=== PATIENT | male | born 1945 | race Caucasian/White ===

== ENCOUNTER → 2016-11-26 | Outpatient (CLI) | payer OTHER | LOC: BMCIMAGING 15:01 | PROVIDERS: ATTEND Psychiatry & Neurology Neurology | DX: I65.21 Occlusion and stenosis of right carotid artery (principal) ==

== ENCOUNTER 2016-12-16 07:54 | Emergency (ER) | payer OTHER ==
[2016-12-16 11:11] LABS: ANION GAP 8 mEq/L (8-16); C-REACTIVE PROTEIN < 5.0 mg/L (<10.0); CALCIUM 9.1 mg/dL (8.5-10.4); CARBON DIOXIDE 27 mEq/l (22-31); CHLORIDE 105 mEq/L (97-110); CREATININE 0.8 mg/dL (0.7-1.3); GLOMERULAR FILTRATION RATE > 60; GLUCOSE 103 mg/dL (70-100); POTASSIUM 4.5 mEq/L (3.5-5.2); SODIUM 140 mEq/L (134-144)
--- NOTE | 2016-12-16 11:27 | EDPHY ---
H & P Time Seen by Provider: 12/16/16 08:08 HPI/ROS: CHIEF COMPLAINT: Loss in vision in the right eye HISTORY OF PRESENT ILLNESS: Patient had similar symptoms 2 years ago which lasted for about a day. This past weekend he was in [facility] at his daughter's and noticed at the breakfast table on Friday that he could not see out of his right eye at all. He went to urgent care and was discharged. His symptoms went away after about an hour. Today he spoke with his neurologist who asked him to come to the emergency department for evaluation. Currently is vision has completely gone back to normal. He did not have any recurrence after Friday. Symptoms were not associated with double vision or headache. REVIEW OF SYSTEMS: Eye: HPI ENT: no sore throat Cardiac: no chest pain or syncope Pulmonary: no cough or SOB Abdomen: no vomiting, diarrhea, abdominal pain Musculoskeletal: no back pain or neck pain Skin: no rash Neuro: no headache Constitutional: no fever : no urinary symptoms A comprehensive 10 point review of systems is otherwise negative aside from elements mentioned in the history of present illness. PAST MEDICAL HISTORY: Includes aortic stenosis on Eliquis. Chronic memory issues. L4-5 fusion. Social history: nonsmoker General Appearance: Alert and conversant, cooperative. Eyes: No scleral icterus. Pupils 3 mm left and 4 mm right reactive and extraocular motion intact, no proptosis. No hyphema. ENT, Mouth: Normal mucous membranes. Respiratory: Normal respiratory effort, breath sounds equal, lungs are clear to auscultation. Cardiovascular: Regular rate and rhythm. 3/6 systolic murmur radiating to the carotids. Gastrointestinal: Abdomen is soft and non tender. Neurological: Alert and oriented x3. Normally conversant. Face symmetric, normal movement and sensation in all extremities. Ambulatory without ataxia. Visual everett intact to confrontation. Visual acuity noted 20/25 in each eye. Skin: Warm and dry, no rashes. Musculoskeletal: No peripheral edema and no joint swelling. Psychiatric: Not agitated. Emergency Department course/MDM: Discussed in detail with the patient's neurologist Dr. Ballard at 1023 and again at 11:30 a.m. Also discussed with Dr. Robert at 9:53 a.m. Patient had negative noncontrast head CT as well as angiography. Normal ESR and CRP. Case was discussed with Dr. Torres as well who confirms the patient had a recent echocardiogram this year and does not think that an additional 1 is indicated. Discussed with the patient's neurologist by phone who agrees with discharge no change in his current therapies. Patient is ambulatory and currently asymptomatic and states he is comfortable with being discharged and going home to follow up without any change in his current medication. Smoking Status: Former smoker Constitutional: Initial Vital Signs Temperature (C) 36.5 C 12/16/16 11:39 Heart Rate 58 L 12/16/16 11:39 Respiratory Rate 16 12/16/16 11:39 Blood Pressure 110/71 12/16/16 11:39 O2 Sat (%) 94 12/16/16 11:39 O2 Delivery Mode Room Air Allergies/Adverse Reactions: No Known Allergies Allergy (Unverified 03/18/14 16:17) Home Medications: Medication Instructions Recorded Aspirin [Aspirin 81mg (OTC)] 81 mg PO DAILY 03/18/14 Diazepam [Valium 5 MG (*)] 2.5 - 5 mg PO QID PRN #40 tab 04/01/14 Methocarbamol [Robaxin 750 mg (*)] 750 mg PO QID PRN #60 tab 04/01/14 oxyCODONE CR [Oxycontin] 10 mg PO Q12 #20 tab 04/01/14 oxyCODONE IR [Oxycodone Ir (*)] 5 mg PO Q3 PRN #90 tab 04/01/14 Medical Decision Making - Diagnostics Imaging Results: Imaging Impressions Neck CTA 12/16/16 00:00 Impression: 1. No acute intracranial findings. If symptoms persist and clinical suspicion warrants, consider MRI. 2. Moderate left carotid atherosclerosis without significant stenosis. 3. Multilevel degenerative change in the cervical spine. 4. Additional findings as above. Stenoses are calculated using [place] Symptomatic Carotid Endarterectomy Trial (NASCET) criteria. Findings discussed with Billy in the Emergency Department, who will communicate the findings to Dr. Christ Garcia on December 16, 2016 at 0935 hours. Head CTA 12/16/16 12:18 Impression: 1. No acute intracranial findings. If symptoms persist and clinical suspicion warrants, consider MRI. 2. Moderate left carotid atherosclerosis without significant stenosis. 3. Multilevel degenerative change in the cervical spine. 4. Additional findings as above. Stenoses are calculated using [place] Symptomatic Carotid Endarterectomy Trial (NASCET) criteria. Findings discussed with Billy in the Emergency Department, who will communicate the findings to Dr. Christ Garcia on December 16, 2016 at 0935 hours. Differential Diagnosis: Differential considered including but not limited to carotid stenosis, ischemic stroke, TIA, central retinal vein or artery occlusion. Consult/Admit Bed Type: Brian last echo 08/30 - Data Points Laboratory Results: Laboratory Results 12/16/16 08:20 12/16/16 08:20 12/16/16 12/16/16 12/16/16 08:20 08:20 08:20 WBC 5.29 10^3/uL 10^3/uL (3.80-9.50) RBC 4.95 10^6/uL 10^6/uL (4.40-6.38) Hgb 14.9 g/dL g/dL (13.7-17.5) Hct 44.0 % % (40.0-51.0) MCV 88.9 fL fL (81.5-99.8) MCH 30.1 pg pg (27.9-34.1) MCHC 33.9 g/dL g/dL (32.4-36.7) RDW 12.9 % % (11.5-15.2) Plt Count 217 10^3/uL 10^3/uL (150-400) MPV 10.1 fL fL (8.7-11.7) Neut % (Auto) 53.7 % % (39.3-74.2) Lymph % (Auto) 33.8 % % (15.0-45.0) [place] % (Auto) 8.5 % % (4.5-13.0) Eos % (Auto) 2.3 % % (0.6-7.6) Baso % (Auto) 1.5 % % (0.3-1.7) Nucleat RBC Rel Count 0.0 % % (0.0-0.2) Absolute Neuts (auto) 2.84 10^3/uL 10^3/uL (1.70-6.50) Absolute Lymphs (auto) 1.79 10^3/uL 10^3/uL (1.00-3.00) Absolute Monos (auto) 0.45 10^3/uL 10^3/uL (0.30-0.80) Absolute Eos (auto) 0.12 10^3/uL 10^3/uL (0.03-0.40) Absolute Basos (auto) 0.08 10^3/uL 10^3/uL (0.02-0.10) Absolute Nucleated RBC 0.00 10^3/uL 10^3/uL (0-0.01) Immature Gran % 0.2 % % (0.0-1.1) Immature Gran # 0.01 10^3/uL 10^3/uL (0.00-0.10) ESR 3 MM/HR MM/HR (0-20) PT 15.7 SEC H SEC (12.0-15.0) INR 1.25 H (0.83-1.16) Sodium 140 mEq/L mEq/L (134-144) Potassium 4.5 mEq/L mEq/L (3.5-5.2) Chloride 105 mEq/L mEq/L (97-110) Carbon Dioxide 27 mEq/l mEq/l (22-31) Anion Gap 8 mEq/L mEq/L (8-16) BUN 10 mg/dL mg/dL (7-23) Creatinine 0.8 mg/dL mg/dL (0.7-1.3) Estimated GFR > 60 Glucose 103 mg/dL H mg/dL (70-100) Calcium 9.1 mg/dL mg/dL (8.5-10.4) C-Reactive Protein < 5.0 mg/L mg/L (<10.0) Departure - Departure Disposition: Home, Routine, Self-Care Clinical Impression: right eye vision loss, resolved Condition: Good Instructions: Apixaban (By mouth) Referrals: Jennifer Mcclure MD [Primary Care Provider] - As per Instructions Ruthie Ballard DO [Non Staff and Non MD] - As per Instructions
[2016-12-16 11:41] VITALS: BP 110/71; PULSE 58; RESP 16; TEMP 97.7; O2SAT 94
[2016-12-16 12:45] LABS: % IMMATURE GRANULYOCYTES 0.2 % (0.0-1.1); ABSOLUTE IMMATURE GRANULOCYTES 0.01 10^3/uL (0.00-0.10); ADD DIFF? NO; ADD MORPH? NO; ADD SCAN? NO; ATYPICAL LYMPHOCYTE FLAG 10 (0-99); FRAGMENT RBC FLAG 10 (0-99); HEMOGLOBIN 14.9 g/dL (13.7-17.5); LEFT SHIFT FLG 0 (0-99); LIPEMIA HEMOLYSIS FLAG 90 (0-99); MEAN CELL HEMOGLOBIN 30.1 pg (27.9-34.1); MEAN CELL HEMOGLOBIN CONCENTR. 33.9 g/dL (32.4-36.7); MEAN CELL VOLUME 88.9 fL (81.5-99.8); MEAN PLATELET VOLUME 10.1 fL (8.7-11.7); PLATELET CLUMPS FLAG 0 (0-99); PLATELET COUNT 217 10^3/uL (150-400); RED BLOOD CELL COUNT 4.95 10^6/uL (4.40-6.38); RED CELL DISTRIBUTION WIDTH 12.9 % (11.5-15.2)
[2016-12-16 12:47] LABS: SEDIMENTATION RATE 3 MM/HR (0-20)
[2016-12-16 13:18] LABS: INR 1.25 (0.83-1.16); PROTIME(PATIENT) 15.7 SEC (12.0-15.0)
[2016-12-16] MEDS ORDERED: IOPAMIDOL (ISOVUE 370) 100 ML BTL IV ONE (15:40)
--- NOTE | 2016-12-16 15:55 | CPEKG ---
Heart Rate: 68 RR Interval: 882 P-R Interval: 172 QRSD Interval: 110 QT Interval: 380 QTC Interval: 405 P [place]: 28 QRS [place]: -51 T Wave [place]: 28 EKG Severity - ABNORMAL ECG - EKG Impression: SINUS RHYTHM EKG Impression: LAD, CONSIDER LEFT ANTERIOR FASCICULAR BLOCK Electronically Signed By: Christ Garica 16-Dec-2016 15:58:31
== END 2016-12-16 11:39 | disposition home or self-care (01) ==
DX: H54.61 Unqualified visual loss, right eye, normal vision left eye (principal); Z79.82 Long term (current) use of aspirin; Z87.891 Personal history of nicotine dependence
CPT/HCPCS: 70450; 70496; 70498; 93005; Q9967

== ENCOUNTER → 2016-12-18 | Outpatient (CLI) | payer OTHER | LOC: FIMAGING 07:05 | PROVIDERS: ATTEND Psychiatry & Neurology Neurology | DX: H53.129 Transient visual loss, unspecified eye (principal) ==

== ENCOUNTER → 2016-12-18 | Outpatient (CLI) | payer OTHER ==
--- NOTE | 2016-12-18 13:41 | CPEEG ---
[f rep st] ELECTROENCEPHALOGRAM ELECTROENCEPHALOGRAM. DATE OF STUDY: 12/18/2016 DATE OF INTERPRETATION: 12/18/2016. INTERPRETATION: Essentially normal EEG during wakefulness and sleep. There were no definite potent ially epileptogenic abnormalities present during the recording. REPORT: This EEG contains 9 Hz alpha to the posterior head regions. There was no abnormal activati on at rest or with photic stimulation. The patient became drowsy during the study. During drowsine ss, the patient had intermittent bitemporal slowing. This is a normal drowsy pattern in this age gr oup. In addition, there were occasional wicket-like waveforms over the bitemporal head regions. Th ere was no definite abnormal activation during drowsiness, sleep, or during times of arousal. /[id number]/MODL
== END ==
LOC: FCPNEURO 10:42
PROVIDERS: ATTEND Psychiatry & Neurology Neurology
DX: H53.129 Transient visual loss, unspecified eye (principal)

== ENCOUNTER 2017-01-04 15:34 | Emergency (ER) | payer OTHER ==
[2017-01-04 15:39] VITALS: BP 135/77; PULSE 85; RESP 16; TEMP 98.2; O2SAT 98
--- NOTE | 2017-01-04 15:51 | EDPHY ---
H & P Time Seen by Provider: 01/04/17 15:41 HPI/ROS: CHIEF COMPLAINT: Right-sided vision loss HISTORY OF PRESENT ILLNESS: This patient is a 71-year-old male with history of recurrent TIAs who presents to the Emergency Department following an acute episode of right-sided vision loss beginning at 1515 today, 15 minutes prior to arrival, and lasting for 3-5 minutes before subsiding on its own. He is followed by Dr. Ballard, neurologist, for frequent episodes of right-sided vision loss and reports that today's episode is similar to previous. He has been evaluated extensively for these episodes without any identified underlying etiology. This week, he experienced a 1-2 minute episode of slurred speech while talking on the phone that also subsided on its own; he describes this as an inability for his facial muscles to coordinate his speech. He has never experienced a similar episode of speech difficulties. He was seen by Dr. Morley after the episode of slurred speech and has been referred to a neurologist in [place]. At time of presentation, he denies any complaints. His vision has returned to normal. He denies weakness, ataxia, confusion, lightheadedness, or headache. He takes Eliquis for history of aortic stenosis but denies history of atrial fibrillation. REVIEW OF SYSTEMS: Constitutional: No fever, no chills Eyes: As in HPI ENT: No sore throat Respiratory: No cough, no shortness of breath Cardiac: No chest pain Gastrointestinal: No nausea, no vomiting, no abdominal pain Genitourinary: No hematuria, no dysuria Musculoskeletal: No leg pain or swelling Skin: No rash Neurological: As in HPI Psychiatric: No depression Past Medical/Surgical History: Recurrent TIAs, followed by Dr. Ballard Aortic stenosis (Eliquis) Social History: Non-smoker No recent alcohol use Smoking Status: Never smoked Physical Exam: General Appearance: Alert, pleasant Eyes: Pupils equal and round, no conjunctival pallor or injection, EOMI, SAMMIE ENT, Mouth: Mucous membranes moist Neck: Normal inspection, no bruit Respiratory: Lungs are clear to auscultation Cardiovascular: Regular rate and rhythm, blowing systolic murmur Gastrointestinal: Abdomen is soft and non-tender Neurological: A&O, CN II-XII intact, motor/sensory intact, gait normal Skin: Warm and dry, no rash Extremities: Nontender, no pedal edema Psychiatric: Mood and affect normal Constitutional: Initial Vital Signs Temperature (C) 36.8 C 01/04/17 15:36 Heart Rate 85 01/04/17 15:36 Respiratory Rate 16 01/04/17 15:36 Blood Pressure 135/77 H 01/04/17 15:36 O2 Sat (%) 98 01/04/17 15:36 O2 Delivery Mode Room Air Allergies/Adverse Reactions: No Known Allergies Allergy (Unverified 03/18/14 16:17) Home Medications: Medication Instructions Recorded Eliquis 01/04/17 Simvastatin 01/04/17 Medical Decision Making - Diagnostics EKG Interpretation: EKG interpreted by me reveals normal sinus rhythm, rate 67; LAD; no ST/T changes. ED Course/Re-evaluation: 71-year-old male with history of presumed recurrent TIA's on Eliquis presents following 3-5 minute episode of right-sided vision loss. At time of presentation , he is resting comfortable and denies any complaints. On exam, he has a blow systolic murmur consistent with history of aortic stenosis but no additional abnormal findings. Vision is normal. Neurological exam is nonfocal. I reviewed prior medical records, including most recent visit to the ED on December 16 for right-sided vision loss. He had a normal CTA of the head and neck at that time; no changes in medications following subsequent evaluation by his neurologist. He had a recent carotid Doppler and echo; Doppler showed no flow limiting plaque, echo revealed , slightly worsened from previous (according to pt). Will proceed to consult with the patient's neurologist. Plan also for EKG. 1613: Consultation with Dr. Mcclure, on-call for Dr. Ballard, who saw the patient in her office earlier this week following episode of slurred speech. She has discussed his case with Dr. Ballard who recommends the patient begin taking 81mg baby aspirin daily. The patient has been referred to specialist at [facility] for further evaluation of these episodes. ASA 81mg orally given. Since the pt has had recent extensive evaluation for similar episodes, no further evaluation is indicated today. Differential Diagnosis: includes though not limited to CVA, TIA, migraine HUSAIN, ICH Departure - Departure Disposition: Home, Routine, Self-Care Clinical Impression: TIA (transient ischemic attack) Condition: Good Instructions: Transient Ischemic Attack (ED) Additional Instructions: 1. Begin taking 81mg Aspirin daily in addition to your other medications. 2. Follow-up with the specialist in [place] as discussed with Dr. Ballard and your primary care provider. 3. Return to the Emergency Department for difficulty speaking or walking, one- sided numbness or weakness, severe headache, confusion, vision changes that do not subside on their own, or for other serious concerns. Referrals: Jennifer Mcclure MD [Primary Care Provider] - As per Instructions Report Scribed for: Candice Foster Report Scribed by: Carlie Sorenson Date of Report: 01/04/17 Time of Report: 15:51 Physician Review and Approval Statement: 01/04/17 15:51 Portions of this note were transcribed by a medical receptionist medical assistant. I personally performed a history, physical exam, medical decision making, and confirmed accuracy of information the transcribed note.
--- NOTE | 2017-01-04 16:04 | CPEKG ---
Heart Rate: 67 RR Interval: 896 P-R Interval: 184 QRSD Interval: 112 QT Interval: 392 QTC Interval: 414 P [place]: 25 QRS [place]: -45 T Wave [place]: 20 EKG Severity - ABNORMAL ECG - EKG Impression: SINUS RHYTHM EKG Impression: LAD, CONSIDER LEFT ANTERIOR FASCICULAR BLOCK Electronically Signed By: Candice Foster 04-Jan-2017 22:49:43
[2017-01-04] MEDS ORDERED: ASPIRIN 81 MG CHEWABLE TAB PO ONE (16:13)
== END 2017-01-04 16:22 | disposition home or self-care (01) ==
DX: G45.9 Transient cerebral ischemic attack, unspecified (principal)

== ENCOUNTER 2017-03-24 07:00 | Day surgery (SDC) | payer OTHER, MEDICARE ==
[2017-03-24] MEDS ORDERED: diphenhydrAMINE 25 MG CAP PO ONE ×2 (07:06→07:31)
[2017-03-24] MEDS ORDERED: FAMOTIDINE 20 MG TAB PO ONE (07:06)
[2017-03-24] MEDS ORDERED: ASPIRIN EC 325 MG TAB PO ONE ×2 (07:06→07:31)
[2017-03-24] MEDS ORDERED: DIAZEPAM 5 MG TAB PO ONE (07:06)
[2017-03-24] MEDS ORDERED: NS 1,000 ML IV ONE (07:06)
--- NOTE | 2017-03-24 07:28 | CPEKG ---
Heart Rate: 69 RR Interval: 870 P-R Interval: 184 QRSD Interval: 114 QT Interval: 392 QTC Interval: 420 P [place]: 39 QRS [place]: -46 T Wave [place]: 23 EKG Severity - ABNORMAL ECG - EKG Impression: SINUS RHYTHM EKG Impression: VENTRICULAR PREMATURE COMPLEX EKG Impression: LAD, CONSIDER LEFT ANTERIOR FASCICULAR BLOCK Electronically Signed By: Dell Barrios 25-Mar-2017 06:36:51
[2017-03-24] MEDS ORDERED: FAMOTIDINE 20 MG TAB ONE (07:31)
[2017-03-24] MEDS ORDERED: DIAZEPAM 5 MG TAB ONE (07:31)
[2017-03-24 07:39] LABS: % IMMATURE GRANULYOCYTES 0.2 % (0.0-1.1); ABSOLUTE IMMATURE GRANULOCYTES 0.01 10^3/uL (0.00-0.10); ADD DIFF? NO; ADD MORPH? NO; ADD SCAN? NO; ATYPICAL LYMPHOCYTE FLAG 20 (0-99); FRAGMENT RBC FLAG 0 (0-99); HEMATOCRIT 43.9 % (40.0-51.0); HEMOGLOBIN 14.8 g/dL (13.7-17.5); LEFT SHIFT FLG 0 (0-99); LIPEMIA HEMOLYSIS FLAG 80 (0-99); MEAN CELL HEMOGLOBIN 29.9 pg (27.9-34.1); MEAN CELL HEMOGLOBIN CONCENTR. 33.7 g/dL (32.4-36.7); MEAN CELL VOLUME 88.7 fL (81.5-99.8); MEAN PLATELET VOLUME 9.8 fL (8.7-11.7); PLATELET CLUMPS FLAG 0 (0-99); PLATELET COUNT 172 10^3/uL (150-400); RED BLOOD CELL COUNT 4.95 10^6/uL (4.40-6.38); RED CELL DISTRIBUTION WIDTH 13.2 % (11.5-15.2)
[2017-03-24 07:49] LABS: INR 1.19 (0.83-1.16); PROTIME(PATIENT) 15.1 SEC (12.0-15.0)
[2017-03-24 07:59] VITALS: BP 106/69; RESP 23; O2SAT 95
[2017-03-24 08:05] LABS: ANION GAP 10 mEq/L (8-16); CALCIUM 8.9 mg/dL (8.5-10.4); CARBON DIOXIDE 23 mEq/l (22-31); CHLORIDE 105 mEq/L (97-110); CHOLESTEROL 119 mg/dL (140-220); CHOLESTEROL/HDL RATIO 2.09 RATIO (1.00-4.97); CREATININE 0.8 mg/dL (0.7-1.3); GLOMERULAR FILTRATION RATE > 60; GLUCOSE 87 mg/dL (70-100); HIGH DENSITY LIPOPROTEIN 57 mg/dL (40-65); LDL/HDL RATIO 0.86 RATIO (1.00-3.64); LOW DENSITY LIPOPROTEIN 49 mg/dL (80-100); NON-HIGH DENSITY LIPOPROTEIN 62 mg/dL (90-129); POTASSIUM 4.2 mEq/L (3.5-5.2); SODIUM 138 mEq/L (134-144); TRIGLYCERIDE 66 mg/dL (40-150); VERY LOW DENSITY LIPOPROTEINS 13 mg/dL (8-25)
--- NOTE | 2017-03-24 08:30 | PDPROPOC ---
Sedation Plan of Care Sedation Plan of Care: vital signs stable, mental status noted, patient educated of risks, benefits, alternatives, patient can tolerate sedation ASA Classification: ASA 2 Planned drugs: fentanyl, midazolam Mallampati Score: Class 2 Mallampati Reference Image: Patient passed 3-3-2 rule?: Yes
--- NOTE | 2017-03-24 08:30 | PDHPUP ---
History & Physical Update H&P update statement: This history and physical update is based on an assessment of the patient which was completed after admission or registration (within 24 hours), but prior to the surgery/procedure. H&P update: H&P reviewed & patient examined, no change in patient's condition since H&P completed
[2017-03-24] MEDS ORDERED: fentaNYL 100 MCG/2 ML INJ ONE (08:34)
[2017-03-24] MEDS ORDERED: LIDOCAINE 1% 300 MG/30 ML SDV ONE (08:34)
[2017-03-24] MEDS ORDERED: MIDAZOLAM 2 MG/2 ML VIAL ONE (08:34)
[2017-03-24] MEDS ORDERED: IOPAMIDOL (ISOVUE-370) 150 ML BTL IV ONE (08:34)
--- NOTE | 2017-03-24 11:24 | CPIP ---
[f rep st] INVASIVE CARDIAC PROCEDURE DATE OF PROCEDURE: 03/24/2017 PROCEDURE: Coronary angiography. INDICATIONS: Preoperative evaluation prior to TAVR. ACCESS: The patient was prepped and draped in sterile fashion. 1% lidocaine was used to anesthetize the right inguinal region. A 6-Vietnamese introducer sheath was placed selectively into the right commo n femoral artery via modified Seldinger technique. CORONARY ANGIOGRAPHY: A 6-Vietnamese JL4 was advanced to the left main coronary artery and images obtain ed. The left main coronary artery trifurcated into an LAD, ramus, and circumflex coronary arteries. The left main coronary artery appeared normal. The left anterior descending coronary artery gave ri se to 1 diagonal branch. The left anterior descending coronary artery had an ostial 25% stenosis pre sent. The remainder of the vessel and its diagonal branch appeared free of any significant disease. The ramus coronary artery is a moderate-sized vessel. The ramus coronary artery appeared normal. T he circumflex coronary artery is a dominant vessel. The circumflex coronary artery had a proximal 20 % stenosis present. The remainder of the vessel appeared free of any significant disease. A 6-Frenc h JR4 was advanced to the right coronary artery and images obtained. The right coronary artery was n ondominant. The right coronary artery appeared normal. LEFT VENTRICULOGRAPHY: Left ventriculography was not performed given known severe aortic stenosis. COMPLICATIONS: None. CONCLUSIONS: Mild coronary artery disease without flow limitation. /[id number]/MODL
== END 2017-03-24 13:15 | disposition home or self-care (01) ==
LOC: FCATH 07:00
PROVIDERS: ATTEND Internal Medicine Cardiovascular Disease
PROC: B2111ZZ Fluoroscopy of Multiple Coronary Arteries using Low Osmolar Contrast (ICD-10-PCS; principal; 2017-03-24)
PROC: 4A023N7 Measurement of Cardiac Sampling and Pressure, Left Heart, Percutaneous Approach (ICD-10-PCS; principal; 2017-03-24)
DX: Z01.810 Encounter for preprocedural cardiovascular examination (principal); I35.8 Other nonrheumatic aortic valve disorders
CPT/HCPCS: C1760; J1644; J2250; J3010; Q9967

== ENCOUNTER 2017-12-11 05:03 | Emergency (ER) | payer OTHER, MEDICARE ==
--- NOTE | 2017-12-11 05:15 | CPEKG ---
Heart Rate: 55 RR Interval: 1091 P-R Interval: 184 QRSD Interval: 108 QT Interval: 412 QTC Interval: 394 P [place]: 25 QRS [place]: -22 T Wave [place]: 41 EKG Severity - NORMAL ECG - EKG Impression: SINUS RHYTHM Electronically Signed By: Candice Foster 11-Dec-2017 13:37:59
[2017-12-11 05:37] LABS: PLATELET COUNT 179 10^3/uL (150-400)
--- NOTE | 2017-12-11 05:41 | EDPHY ---
H & P Stated Complaint: left side CP since yesterday while walking Time Seen by Provider: 12/11/17 05:15 HPI/ROS: HPI The patient presents with chest pain which began yesterday afternoon when he was on a several mi walk. The pain began slowly and is an achy sensation which is very mild that he feels in his left chest. He cut his walk short and went home afterwards. His pain improved somewhat though never completely subsided. He went to bed last night and when he woke up this morning he still had the pain , so he comes into the emergency department for evaluation. The pain does not radiate. It is not associated with any nausea, vomiting, dizziness, diaphoresis. He does not think he has ever had the pain before. He had a TAVR procedure performed in March of last year. At this time he had a cardiac catheterization performed demonstrating mild CAD with no flow limitations. He takes a baby aspirin daily for history of TIA. REVIEW OF SYSTEMS Constitutional: No fever, no chills. Eyes: No discharge. ENT: No sore throat. Cardiovascular: No chest pain, no palpitations. Respiratory: No cough, no shortness of breath. Gastrointestinal: No abdominal pain, no vomiting. Genitourinary: No hematuria. Musculoskeletal: No back pain. Skin: No rashes. Neurological: No headache. 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 PHYSICAL General Appearance: Alert, no distress Eyes: Pupils equal and round no pallor or injection ENT, Mouth: Mucous membranes moist Respiratory: There are no retractions, lungs are clear to auscultation Cardiovascular: Regular rate and rhythm Gastrointestinal: Abdomen is soft and non-tender, no masses, bowel sounds normal Neurological: A&O, moves all extremities Skin: Warm and dry, no rashes Musculoskeletal: Neck is supple non tender Extremities: symmetrical, full range of motion Psychiatric: Patient is oriented X 3, there is no agitation Source: Patient Exam Limitations: No limitations - Personal History Current Tetanus/Diphtheria Vaccine: Unsure Current Tetanus Diphtheria and Acellular Pertussis (TDAP): Unsure - Medical/Surgical History Hx Asthma: No Hx Chronic Respiratory Disease: No Hx Diabetes: No Hx Cardiac Disease: Yes Hx Renal Disease: No Hx Cirrhosis: No Hx Alcoholism: No Hx HIV/AIDS: No Hx Splenectomy or Spleen Trauma: No Other PMH: poss tias in past, aortic valve replacement - Social History Smoking Status: Former smoker Constitutional: Initial Vital Signs Temperature (C) 36.6 C 12/11/17 05:05 Heart Rate 61 12/11/17 05:05 Respiratory Rate 16 12/11/17 05:05 Blood Pressure 132/70 H 12/11/17 05:05 O2 Sat (%) 98 12/11/17 05:05 O2 Delivery Mode Room Air Allergies/Adverse Reactions: No Known Allergies Allergy (Verified 12/11/17 05:08) Home Medications: Medication Instructions Recorded Aspirin 81mg (*) 12/11/17 Medical Decision Making - Diagnostics EKG Interpretation: EKG: Complete interpretation has been separately recorded in the [facility] archive. Summary impression: Normal sinus rhythm, no ST segment change Imaging Results: Chest x-ray two view shows no cardiomegaly, no infiltrate, interpreted by me, radiology interpretation is pending. Imaging: I viewed and interpreted images myself Differential Diagnosis: This is a 72-year-old male with history of TIA, recent TAVR procedure last year presents with mild chest pain which began yesterday on a long walk. It is been persistent and he awoke with it this morning so he came in. He has no associated features of the pain. Of note, he had cardiac catheterization performed in March of 2017 which showed mild CAD. He usually walks for up to 9 miles daily and feels well. He is not limited by any shortness of breath. Differential diagnosis includes ACS, costochondritis, GERD, muscle strain. I have considered complication from his TAVR however given that he does not have any shortness of breath or murmur on exam I feel valve thrombosis or regurgitation would be less likely. I have calculated the patient's HEART score 3 which is low risk. I do not think he needs a repeat troponin as his pain has been constant for almost 24 hr and I would suspect it would be positive at this time if his pain was due to ACS. He is followed by [facility] and I have instructed him that he needs a follow-up appointment in the next 1-2 days to discuss if any provocative testing needs to be done. He should continue on his daily baby aspirin. - Data Points Laboratory Results: Laboratory Results 12/11/17 05:21 12/11/17 05:21 Departure - Departure Disposition: Home, Routine, Self-Care Clinical Impression: Chest pain Condition: Good Instructions: Chest Pain (ED) Additional Instructions: Please follow-up with [facility] in the next 1 day. If you have any ongoing chest pain, you should return to the emergency department. Referrals: Jennifer Mcclure MD [Primary Care Provider] - As per Instructions Valente Torres MD [Medical Doctor] - As per Instructions
[2017-12-11 06:54] VITALS: BP 108/59
== END 2017-12-11 06:52 | disposition home or self-care (01) ==
DX: R07.9 Chest pain, unspecified (principal); Z87.891 Personal history of nicotine dependence

== ENCOUNTER → 2018-07-08 | Outpatient (CLI) | payer OTHER, MEDICARE | END | disposition home or self-care (01) | LOC: FIMAGING 09:51 | PROVIDERS: ATTEND Internal Medicine | DX: S83.411A Sprain of medial collateral ligament of right knee, initial encounter (principal); M23.331 Other meniscus derangements, other medial meniscus, right knee; X58.XXXA Exposure to other specified factors, initial encounter ==

== ENCOUNTER → 2018-07-15 | Outpatient (CLI) | payer OTHER, MEDICARE | LOC: BMCIMAGING 08:16 | PROVIDERS: ATTEND Physician Assistant | DX: M17.11 Unilateral primary osteoarthritis, right knee (principal) ==

== ENCOUNTER → 2018-07-22 | Outpatient (CLI) | payer OTHER, MEDICARE | LOC: BMCIMAGING 13:54 | PROVIDERS: ATTEND Physician Assistant | DX: M25.841 Other specified joint disorders, right hand (principal); M25.842 Other specified joint disorders, left hand; M85.641 Other cyst of bone, right hand; M85.642 Other cyst of bone, left hand ==

== ENCOUNTER 2018-09-01 15:17 | Emergency (ER) | payer OTHER, MEDICARE ==
--- NOTE | 2018-09-01 16:31 | EDPHY ---
General Time Seen by Provider: 09/01/18 16:30 Narrative: CLINICAL IMPRESSION: Skin tear, skin avulsion ASSESSMENT/PLAN: Patient is a 73-year-old male with a history of AFib on Eliquis and hyperlipidemia who presents for evaluation of right lower extremity puncture wound. Patient is not toxic appearing, he is in no distress. Physical examination reveals 1 cm skin tear with complete superficial skin avulsion on the lateral aspect of the mid right lower extremity. There is no evidence of gaping wound, puncture wound, deep structure involvement, neurovascular compromise, foreign body, or bony involvement. The wound was not contaminated, tetanus status was updated today. The wound was cleansed and dressed with antibiotic ointment and a dry dressing, the patient tolerated this well. Wound care instructions discussed with patient. He is well established with his PCP, he will call to schedule an appointment for wound check. Return precautions discussed- he will return for increased pain, signs of infection, fever, vomiting, if the wound opens or for any other concerns. Patient and family member both verbalize understanding and are in agreement with plan DIFFERENTIAL DX: Differential diagnosis includes but not limited to avulsion, puncture wound, skin tear, laceration CHIEF COMPLAINT: Puncture wound HPI: Patient is a 73-year-old male with a history of AFib on Eliquis and hyperlipidemia who presents for evaluation of possible puncture wound to his right lower extremity. Patient reports just prior to arrival he was moving a bunch of items around in his house, he is unsure exactly what hit his leg but feels that he sustained a puncture wound to the right lower extremity. It was not painful, he just noted that his leg was bleeding. He felt that it was bleeding so significantly that he should come to the emergency department for evaluation. He applied pressure and ultimately had the bleeding controlled prior to arrival here. He denies any pain, there is no numbness or tingling of the extremity. He denies any other injury or complaint PAST MEDICAL HISTORY: AFib, hyperlipidemia Family History: Noncontributory Social History: Denies illicit drug use or smoking ROS: A full 10 point review of systems was negative except for those mentioned in HPI. PHYSICAL EXAM: General Appearance: Alert, oriented, appropriate, cooperative, NAD, well hydrated, non-toxic appearing, VSS, no hypoxia. HEENT: TMs are clear bilaterally no perforation or FB, no injection, no evidence of serous or mucopurulent otitis. Oropharynx clear is no erythema or exudates, no tonsillar hypertrophy or asymmetry. Dentition without abnormality. Eyes: PERRLA, no acute vision change, nystagmus, swelling, discharge, pain or photosensitivity. Conjunctiva pink, no pallor or injection Neck: Supple, nontender, no lymphadenopathy, no midline pain, FROM, no meningismus. Respiratory: There are no retractions, lungs are clear to auscultation. Cardiac: Regular rate and rhythm, no murmurs or gallops. Gastrointestinal: Abdomen is soft, nontender, bowel sounds normal, no masses/ hernia, no rigidity, guarding or focal peritoneal findings. Skin: Warm, dry, no rashes, no nodules on palpation. 1 cm skin tear on the right lower extremity, mid lateral region. There is no active bleeding, this is very superficial in nature. MEDICAL DECISION MAKING: Patient was seen independently. Secondary supervising physician at time of evaluation was Dr. Mccullough, he did not evaluate this patient. Diagnosis: Skin tear. New, requires workup Summary: See Assessment and Plan for summary of ED visit Clinical lab tests: Not applicable. Independent visualization of images, tracing, or specimens: Not applicable. Decision to obtain medical records or history from someone other than the patient: No Review / Summarize previous medical records: Yes Discussed patient with another provider: No Patient Progress: Stable, discharged. - History Smoking Status: Former smoker - Objective Vital Signs: Initial Vital Signs Temperature (C) 36.7 C 09/01/18 15:45 Heart Rate 71 09/01/18 15:45 Respiratory Rate 17 09/01/18 15:45 Blood Pressure 149/76 H 09/01/18 15:45 O2 Sat (%) 95 09/01/18 15:45 O2 Delivery Mode Room Air Allergies/Adverse Reactions: No Known Allergies Allergy (Verified 09/01/18 15:44) Home Medications: Medication Instructions Recorded Aspirin 81mg (*) 12/11/17 SIMVASTATIN 02/19/18 Eliquis 09/01/18 Medications Given: Discontinued Medications Diphtheria/Tetanus/Acell Pertussis (Boostrix) 0.5 ml IM .ONCE ONE Stop: 09/01/18 16:39 Last Admin: 09/01/18 17:01 Dose: 0.5 ml Departure - Departure Disposition: Home, Routine, Self-Care Clinical Impression: Skin tear of lower leg without complication Condition: Good Instructions: Skin Tear (ED) Additional Instructions: DISCHARGE INSTRUCTIONS FROM YOUR DOCTOR Thank you for visiting our emergency department today. Please keep in mind that discharge from the emergency department does not mean that there is nothing wrong - it simply means that we have not identified an emergency condition that requires further evaluation or treatment in the hospital. You should always plan to follow up with primary care for re-evaluation of your condition in the next 2-3 days. Keep wound clean and dry for 24 hours. Then remove dressing, clean at least twice daily or when soiled with soap and water, apply antibiotic ointment and dressing. If it begins to bleed again, please apply pressure. Tylenol every 4-6 hours as directed as needed for pain. Do not exceed 3000 mg in 24 hours. Ibuprofen as directed every 6-8 hours with food as needed for pain. Stop for stomach upset. Do not exceed 2400 mg in 24 hours. Continue your regular medications as prescribed. Schedule a follow-up visit with your primary care physician for wound check or for any concerns. Return for signs of wound infection ie: redness, swelling, drainage, foul odor, red streaks, fever, chills, pain, bleeding, if the stitches pop, if the wound opens or for any other new, worsening or worrisome symptoms. People present with illnesses and injuries in different ways, and it is always possible that we have missed something. You may always return for re-evaluation if symptoms worsen or if they are not improving or if you develop new/different symptoms. Again, thank you for choosing our emergency department. We hope that you feel better. Referrals: Jennifer Mcclure MD [Primary Care Provider] - Follow Up Only If Needed
[2018-09-01] MEDS ORDERED: TDAP ADULT 0.5 ML INJ (BOOSTRIX) IM ONE (16:38)
[2018-09-01 17:22] VITALS: BP 149/84
== END 2018-09-01 17:19 | disposition home or self-care (01) ==
DX: S81.801A Unspecified open wound, right lower leg, initial encounter (principal); Z23 Encounter for immunization

== ENCOUNTER → 2018-09-17 | Outpatient (CLI) | payer OTHER, MEDICARE | LOC: FIMAGING 13:53 | PROVIDERS: ATTEND Surgery | DX: M22.41 Chondromalacia patellae, right knee (principal) ==

== ENCOUNTER → 2018-11-10 | Outpatient (CLI) | payer OTHER, MEDICARE | LOC: FIMAGING 10:35 | PROVIDERS: ATTEND Surgery | DX: R10.31 Right lower quadrant pain (principal); K40.90 Unilateral inguinal hernia, without obstruction or gangrene, not specified as recurrent ==

== ENCOUNTER 2018-12-11 06:34 | Day surgery (SDC) | payer OTHER, MEDICARE ==
--- NOTE | 2018-12-04 18:09 | GHP ---
[f rep st] PREOP HISTORY AND PHYSICAL DATE OF ADMISSION: 12/10/2018 CC: Recurrent right inguinal hernia. HPI: S/P Lap LOUIE who developed discomfort in his groin. He does not recall a precipitating event. The patient had a groin ultrasound performed on 11/10/2018 , which showed a small reducible recurrent right inguinal hernia, fat containing. It is uncomfortable but not painful. No difficulty with bowel or bladder habits. PAST MEDICAL HISTORY: Hyperlipidemia, memory loss PAST SURGICAL HISTORY: Laparoscopic bilateral inguinal hernia repair. Spinal surgery, L4-5 fusion. TAVR. MEDICATIONS: Aspirin, simvastatin. ALLERGIES: No known drug allergies. FAMILY HISTORY: Significant for Alzheimer's, TIA, heart disease and cancer. SOCIAL HISTORY: He is a former smoker. Denies alcohol, recreational drug use, or tobacco. REVIEW OF SYSTEMS: No fevers or chills. PHYSICAL EXAM: GENERAL: A well-developed, well-nourished man in no acute distress. HEENT: Normocephalic, atraumatic. No hearing deficits. Pupils are equal and round. No scleral icterus. Mucous membranes are moist. RESPIRATORY : No increased work of breathing. CTAB CARDIOVASCULAR: No peripheral edema. RRR. ABDOMEN: Soft, nondistended and nontender. Testes descended bilaterally. Normal external genitalia. SKIN: Warm and dry. PSYCH: Mood and affect normal. NEURO: Grossly intact. IMPRESSION AND PLAN: A 73-year-old man with recurrent right inguinal hernia on ultrasound. He presents at this time for robotic repair of the right inguinal hernia, possible bilaterally. We discussed risks of surgery including, but not limited to heart attack, stroke, blood clots, . We discussed risks of infection, bleeding, damage to surrounding structures, need for additional procedures, or recurrence. He understands the risks and would like to proceed. The patient additionally seen by Dr. Lisa Bustamante. Anticipate this to be outpatient procedure. He will receive antibiotics weight loss sales consultant to the operating room. /[id number]/MODL MTDD
[2018-12-11] MEDS ORDERED: ceFAZolin 2 GM/DEXTROSE 100 ML IV ONE (06:53)
[2018-12-11] MEDS ORDERED: LR 1,000 ML IV ONE (06:54)
[2018-12-11] MEDS ORDERED: BUPIVACAINE 0.5% 30 ML SDV ONE (07:19)
[2018-12-11] MEDS ORDERED: PROPOFOL 200 MG/20 ML VIAL ONE (07:58)
[2018-12-11] MEDS ORDERED: fentaNYL 100 MCG/2 ML INJ ONE ×2 (07:58)
[2018-12-11] MEDS ORDERED: KETOROLAC 30 MG/1 ML SDV ONE ×2 (08:00→08:58)
[2018-12-11] MEDS ORDERED: ROCURONIUM 50 MG/5 ML VIAL ONE (08:02)
[2018-12-11] MEDS ORDERED: LIDOCAINE 2% 5 ML SDV ONE (08:02)
[2018-12-11] MEDS ORDERED: DEXAMETHASONE 4 MG/ML VIAL ONE (08:49)
[2018-12-11] MEDS ORDERED: ePHEDrine SULFATE 25 MG/5 ML SYR ONE (08:50)
--- NOTE | 2018-12-11 08:52 | PDANEPAE ---
ANE History of Present Illness robotic inguinal hernia repair ANE Past Medical History - Cardiovascular History Hx Hypertension: No Hx Arrhythmias: Yes Hx Chest Pain: No Hx Coronary Artery / Peripheral Vascular Disease: Yes Hx CHF / Valvular Disease: Yes Hx Palpitations: No Cardiovascular History Comment: HIGH CHOL. CAD. PAF- LOOP RECORDER. H/O AORTIC STENOSIS S/P TAVR. FOLLOWED BY [facility] [place] CARDS- RECORDS ON CHART - Pulmonary History Hx COPD: No Hx Asthma/Reactive Airway Disease: No Hx Recent Upper Respiratory Infection: No Hx Oxygen in Use at Home: No Hx Sleep Apnea: No Sleep Apnea Screening Result - Last Documented: Negative - Neurologic History Hx Cerebrovascular Accident: Yes Hx Seizures: No Hx Dementia: Yes Neurologic History Comment: MILD CONGNITIVE IMPAIRMENT- ALZHEIMERS. TIA - Endocrine History Hx Diabetes: No - Renal History Hx Renal Disorders: No - Liver History Hx Hepatic Disorders: No - Neurological & Psychiatric Hx Hx Neurological and Psychiatric Disorders: Yes Neurological / Psychiatric History Comment: ETOH/Drug abuse; sober x37 years - Cancer History Hx Cancer: Yes Cancer History Comment: BASAL CELL. SQUAMOUS CELL- FOLLOWED BY [facility] [place] [facility]. HX OF MOHS PROCEDURE - Congenital Disorder History Hx Congenital Disorders: No - GI History Hx Gastrointestinal Disorders: No - Other Health History Other Health History: WEARS GLASSES. 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 Recurrent inguinal hernias bilaterally. R knee pain. L4-5 TLIF/LAMI - Chronic Pain History Chronic Pain: No - Surgical History Prior Surgeries: Bilateral hernia repair 02/20/18. CARDIAC CATH 03/2017. TAVR DONE AT [facility] 03/[address] LANCASTER. 03/30/14 L4-5 LAMI/ TLIF WITH ELVIA. RIGHT SHOULDER SURGERY. APPY. FINGER SURGERY ANE Review of Systems Review of Systems: - Exercise capacity METS (RN): 5 METS ANE Patient History - Allergies Allergies/Adverse Reactions: No Known Allergies Allergy (Verified 09/01/18 15:44) - Home Medications Home medications: home medication list seen and reviewed Home Medications: Aspirin 81mg (*) 81 mg PO DAILY AT 8PM 12/11/17 [Last Taken 1 Week Ago ~12/04/18 ] SIMVASTATIN 10 mg PO DAILY AT 8PM 02/19/18 [Last Taken 1 Day Ago ~12/10/18] Eliquis 5 mg PO BID 09/01/18 [Last Taken 12/08/18 07:00] Acetaminophen [Tylenol Extra Strength] 500 mg PO DAILY PRN 12/01/18 [Last Taken 1 Day Ago ~12/10/18] Cyanocobalamin (Vitamin B-12) [Vitamin B-12] 3,000 mcg PO DAILY 12/01/18 [Last Taken 1 Week Ago ~12/04/18] [place]-3/Dha/Epa/Fish Oil [Fish Oil 1,000 mg Softgel] 1 each PO DAILY 12/01/18 [ Last Taken 1 Week Ago ~12/04/18] Ubidecarenone [Co Q-10] mg PO DAILY 12/01/18 [Last Taken 1 Week Ago ~12/04/18] - NPO status NPO Since - Liquids (Date): 12/11/18 NPO Since - Liquids (Time): 03:30 NPO Since - Solids (Date): 12/10/18 NPO Since - Solids (Time): 18:00 - Anes Hx Anes Hx: no prior problems - Smoking Hx Smoking Status: Former smoker - Family Anes Hx Family Hx Anesthesia Complications: NONE ANE Labs/Vital Signs - Vital Signs Blood Pressure: 136/78 Heart Rate: 63 Respiratory Rate: 18 O2 Sat (%): 97 Height: 180.34 cm Weight: 80.739 kg ANE Physical Exam - Airway Neck exam: FROM Mallampati Score: Class 2 Mouth exam: normal dental/mouth exam - Pulmonary Pulmonary: no respiratory distress - Cardiovascular Cardiovascular: regular rate and rhythym - ASA Status ASA Status: III ANE Anesthesia Plan Anesthesia Plan: general endotracheal anesthesia Urgent/Emergent Case: Katey encarnacion completed preop but documented later for safe timely pt care
--- NOTE | 2018-12-11 08:53 | POSTANESTH ---
Post Anesthetic Evaluation Cardiovascular Status: Normal, Stable Respiratory Status: Normal, Stable Level of Consciousness/Mental Status: Can Participate in Eval, Mildly Sleepy, Arousable Pain Control: Adequate, Prn Tx Ordered Nausea/Vomiting Control: Adequate, Prn Tx Ordered Complications Possibly Related to Anesthesia: None Noted
[2018-12-11] MEDS ORDERED: LR 500 ML IV PRN (08:58)
[2018-12-11] MEDS ORDERED: oxyCODONE IR 5 MG TAB PO PRN (08:58)
[2018-12-11] MEDS ORDERED: fentaNYL 100 MCG/2 ML INJ IVP PRN (08:58)
[2018-12-11] MEDS ORDERED: SUGAMMADEX SODIUM 200 MG/2 ML VIAL IVP ONE (08:58)
[2018-12-11] MEDS ORDERED: PROMETHAZINE HCL 25 MG/ML INJ IVP PRN (08:58)
[2018-12-11] MEDS ORDERED: HYDROmorphONE/DILAUDID 1 MG/ML INJ IVP PRN (08:58)
[2018-12-11] MEDS ORDERED: ALBUTEROL 3 ML DEYVIAL IH PRN (08:58)
[2018-12-11] MEDS ORDERED: NALOXONE HCL 0.4 MG/ML INJ IVP PRN (08:58)
[2018-12-11] MEDS ORDERED: HYDROCODONE/APAP 5/325 TAB PO PRN (08:58)
[2018-12-11] MEDS ORDERED: ONDANSETRON 4 MG/2 ML VIAL IVP PRN (08:58)
[2018-12-11] MEDS ORDERED: ONDANSETRON 4 MG/2 ML VIAL ONE (08:58)
[2018-12-11] MEDS ORDERED: ACETAMINOPHEN 500 MG TAB PO PRN (08:58)
--- NOTE | 2018-12-11 09:53 | POSTOPPROG ---
Post Op Note Date of Operation: 12/11/18 Surgeon: Lisa Bustamante Industrial Gas Fitter: ruba Anesthesiologist: jose f Anesthesia: GET(General Endotracheal) Pre-op Diagnosis: Recurrent RIH Post-op Diagnosis: same Indication: 73 yo with recurrent RIH Procedure: davinci rih with mesh Findings: hernia medial to cord but not true direct Inf/Abcess present in the surg proc area at time of surgery?: No Specimen(s): none
--- NOTE | 2018-12-11 11:26 | GOP ---
[f rep st] OPERATIVE REPORT DATE OF OPERATION: 12/11/2018 SURGEON: Lisa Bustamante MD PHP SOFTWARE ENGINEER: Liberty Barahona PA-C. ANESTHESIA: General. ANESTHESIOLOGIST: Dr. Bhavik Carrera. PREOPERATIVE DIAGNOSIS: Recurrent right inguinal hernia. POSTOPERATIVE DIAGNOSIS: Recurrent right inguinal hernia. PROCEDURE PERFORMED: Da Dora right inguinal hernia repair with mesh. FINDINGS: Hernia medial to cord but not true direct defect. SPECIMENS: None. ESTIMATED BLOOD LOSS: 5 cc. INDICATIONS: The patient is a 73-year-old man who underwent bilateral inguinal hernia repair with mesh. He developed some discomfort in his right groin. Ultrasound showed a small fat-containing defect. DESCRIPTION OF PROCEDURE: Patient was brought into the operating room, placed supine on the table, and general anesthesia was administered. His abdomen was prepped and draped in the usual sterile fashion. I infiltrated all sites with 0.5% Marcaine prior to making incisions. Made an incision above his umbilicus and just to the right. We inserted the Veress needle. It passed the hanging drop test. His abdomen insufflated easily to a pressure of 15 mmHg. I placed an 8 mm trocar at this site. I placed the camera and there were no injuries from Veress needle placement. Under direct vision, I placed an 8 mm trocar approximately 8 cm to the right and left of the central trocar. He was placed in Trendelenburg position. The robot was brought in and docked. I inserted the fenestrated bipolar and scissors under direct vision. I did not see an inguinal hernia on the left side. On the right side, I could see a small defect. I could see his old mesh where it had been incorporated. I tried to create a peritoneal flap, but in some portions, this was simply not possible due to his previous mesh. I cleared away where the hernia defect was and isolated the cord and cord structures. Once I had adequate space, I placed a piece of laparoscopic self-fixating ProGrip mesh that had a slit cut in and I wrapped this around the cord. I then could reapproximate his peritoneum with 0 V-Loc 90. The ports were removed under direct vision. Abdomen allowed to desufflate. Skin closed with 4-0 Monocryl. Dermabond applied. He was awakened in the operating room, extubated, transferred to PACU in stable condition. /[id number]/MODL MTDD
[2018-12-11 12:29] VITALS: BP 125/63
== END 2018-12-11 12:30 | disposition home or self-care (01) ==
LOC: FSGY 06:34
PROVIDERS: ATTEND Surgery
PROC: 8E0Y4CZ Robotic Assisted Procedure of Lower Extremity, Percutaneous Endoscopic Approach (ICD-10-PCS; principal; 2018-12-11 08:30)
PROC: 0YU54JZ Supplement Right Inguinal Region with Synthetic Substitute, Percutaneous Endoscopic Approach (ICD-10-PCS; principal; 2018-12-11 08:30)
DX: K40.91 Unilateral inguinal hernia, without obstruction or gangrene, recurrent (principal); Z98.1 Arthrodesis status; Z86.79 Personal history of other diseases of the circulatory system
CPT/HCPCS: C1781; J0690; J1100; J1885; J2405; J2704; J3010